=== PATIENT | male | born 1990 | race Caucasian/White ===

== ENCOUNTER 2016-05-31 12:12 | Emergency (ER) | payer BC, OTHER ==
[~2016-05-31] VITALS: Ht 177.8 cm; Wt 113.4 kg
--- OUTSIDE RECORDS SUMMARY | 2016-05-31 12:17 | XMS REPORT | Continuity of Care Document ---
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 Medications Medication Details Route Status Patient Instructions Ordering Provider Order Date Source Allergies, Adverse Reactions, Alerts Substance Category Reaction Severity Reaction type Status Date Reported Comments Source NKA drug allergy Allergy Active [facility] Immunizations Immunization Date Given Site Status Last Updated Comments Source No data available for this section No data available for this section [place] Results Order Name Results Value Reference Range Date Interpretation Comments Source Vital Signs Vital Sign Value Date Comments Source Encounters Location Location Details Encounter Type Encounter Number Reason For Visit Attending Provider ADM Date DC Date Status Source [facility] [id number] Clinic ( Outpatient) [id number] [place] 10/25/2013 [facility] [id number] Clinic ( Outpatient) [id number] Sheila Gunderson 04/27/2013 [facility] [id number] [place] 10/25/2013 10/26/2013 [facility] Procedures Procedure Code Date Perfomer Comments Source
[2016-05-31] MEDS ORDERED: AMPH20TA2 PO (12:25)
--- NOTE | 2016-05-31 12:50 | Diagnostic Imaging Report ---
INDICATION: Fell from a skateboard. Elbow pain EXAMINATION: Right elbow 05/31/2016 FINDINGS: 3 views of the elbow demonstrate a fracture of the radial head without significant displacement. There is a joint effusion. On the lateral view a nonspecific hyperdensity superimposed upon the proximal ulna is noted most likely a bone island although it is not seen on the subsequent images and displaced fracture fragment cannot be excluded. No dislocations appreciated. IMPRESSION: 1. Fracture of the radial head with a density overlying the ulna on the lateral view only. A displaced fracture fragment perhaps from the radial head is not excluded. CT imaging could further characterize. 2. Joint effusion. Dictated by: Dictated on workstation # [id number]
--- NOTE | 2016-05-31 13:00 | ED Upper Extremity ---
General Chief Complaint: Upper Extremity Stated Complaint: R ARM INJ Nursing Triage Note: to ER with complaints of right elbow and wrist pain and injury after a skateboarding accident. Patient reports that he fell forward and caught himself. Nursing Sepsis Screen: No Definite Risk History of Present Illness Time seen by provider: 12:50 Initial Comments Patient was skateboarding, he lost his balance and fell had both arms outstretched. He felt and heard a pop in his right forearm, has pain in the proximal right forearm no right elbow pain. Denies previous injuries to his right upper extremity is right hand dominant. Denies head injury or loss of consciousness at the time of the fall Onset: just prior to arrival Pain/Injury Location: right elbow Method of Injury: fell Modifying Factors: Improves With Immobilization, Worse With Movement, Improves With Rest Associated Symptoms: none Allergies and Home Medications Allergies Coded Allergies: hydrocodone (Unverified Allergy, Mild, HIVES, 05/31/16) Home Medications Dextroamphetamine/Amphetamine 20 Mg Tablet 20 MG PO PRN (Reported) Tramadol HCl 50 Mg Tablet #15 50 MG PO q8 Prescribed by: SOCO DEMPSEY on 05/31/16 1321 Constitutional: no symptoms reported see HPI EENTM: no symptoms reported see HPI Respiratory: no symptoms reported see HPI Cardiovascular: no symptoms reported see HPI Gastrointestinal: no symptoms reported see HPI Genitourinary: no symptoms reported see HPI Musculoskeletal: see HPI joint pain (right elbow) joint swelling muscle painNo neck pain Skin: no symptoms reported see HPI other (no abrasions or lacerations reported with fall) Psychiatric/Neurological: No Symptoms Reported See HPI All Other Systems Reviewed Negative Unless Noted: Yes Past Kztagql-Yabppy-Vjvoxm Hx Patient Social History Alcohol Use: Rarely Uses Recreational Drug Use: No Smoking Status: Never a Smoker 2nd Hand Smoke Exposure: No Recent Foreign Travel: No Contact w/Someone Who Travel: No Recent Infectious Disease Expo: No Recent Hopitalizations: No Immunizations Up To Date Tetanus Booster (TDap): Less than 5yrs PED Vaccines UTD: Yes Seasonal Allergies Seasonal Allergies: No Surgeries HX Surgeries: No Respiratory Hx Respiratory Disorders: No Cardiovascular Hx Cardiac Disorders: No Neurological Hx Neurological Disorders: No Reproductive System Hx Reproductive Disorders: No Genitourinary Hx Genitourinary Disorders: No Gastrointestinal Hx Gastrointestinal Disorders: No Musculoskeletal Hx Musculoskeletal Disorders: No Endocrine Hx Endocrine Disorders: No HEENT HX ENT Disorders: No Cancer Hx Cancer: No Psychosocial Hx Psychiatric Problems: No Integumentary HX Skin/Integumentary Disorder: No Blood Transfusions Hx Blood Disorders: No Reviewed Nursing Assessment Reviewed/Agree w Nursing PMH: Yes Physical Exam Vital Signs Vital Sign - Last 12Hours 05/31/16 12:23 Temp 97.8 Pulse 74 Resp 18 B/P 152/77 Pulse Ox 96 O2 Delivery Room Air Capillary Refill : Less Than 3 Seconds General Appearance: WD/WN no apparent distress HEENT: PERRL/EOMI normal ENT inspection Neck: non-tender full range of motion normal inspection Cardiovascular: normal peripheral pulses regular rate, rhythm no murmur Respiratory: chest non-tender lungs clear Gastrointestinal: normal bowel sounds non tender soft Elbow/Forearm: normal inspection, Right, bone tenderness (radial head), limited ROM Wrist: Yes normal inspection, Yes non-tender, Yes no evidence of injury, Yes normal ROM Hand: normal inspection, non-tender, no evidence of injury, normal ROM, Right Neurologic/Tendon: normal sensation normal motor functions normal tendon functions Neurologic/Psychiatric: no motor/sensory deficits alert normal mood/affect oriented x 3 Skin: normal color warm/dry Lymphatic: no adenopathy Progress/Results/Core Measures Results/Orders My Orders Vital Signs/I&O Blood Pressure Mean: 102 Diagnostic Imaging Diagonstic Imaging: Xray Plain Films/CT/US/NM/MRI: forearm, other (right elbow) Comments NAME: LANNY CAPELLAN V MED REC#: [id number] PT STATUS: REG ER : 1990 PHYSICIAN: ALEC PLUNKETT MD ADMIT DATE: 05/31/16/ER Draft Date of Exam:05/31/16 ELBOW, RIGHT, 3 VIEWS INDICATION: Fell from a skateboard. Elbow pain EXAMINATION: Right elbow 05/31/2016 FINDINGS: 3 views of the elbow demonstrate a fracture of the radial head without significant displacement. There is a joint effusion. On the lateral view a nonspecific hyperdensity superimposed upon the proximal ulna is noted most likely a bone island although it is not seen on the subsequent images and displaced fracture fragment cannot be excluded. No dislocations appreciated. IMPRESSION: 1. Fracture of the radial head with a density overlying the ulna on the lateral view only. A displaced fracture fragment perhaps from the radial head is not excluded. CT imaging could further characterize. 2. Joint effusion. Dictated on workstation # [id number] Dict: 05/31/16 1243 Trans: 05/31/16 1249 [facility] [id number] Interpreted by: PALAK YOST MD Electronically signed by: NAME: LANNY CAPELLAN V [facility] REC#: [id number] PT STATUS: REG ER : 1990 PHYSICIAN: ALEC PLUNKETT MD ADMIT DATE: 05/31/16/ER Draft Date of Exam:05/31/16 FOREARM, RIGHT, 2 VIEWS INDICATION: Trauma. EXAMINATION: Right forearm, 05/31/2016. FINDINGS: Two views of the forearm. Again noted is a fracture of the radial head with the density superimposed upon the ulna again seen. There is a joint effusion. No dislocations appreciated. More distal radius and ulna appear intact. IMPRESSION: 1. Changes at the elbow, see the separate elbow report, remaining forearm unremarkable. Dictated on workstation # [id number] Dict: 05/31/16 1245 Trans: 05/31/16 1259 [facility] [id number] Interpreted by: PALAK YOST MD Electronically signed by: Departure Impression Impression: Primary Impression: Radial head fracture Qualified Code: S52.124A - Nondisplaced fracture of head of right radius, initial encounter for closed fracture Additional Impression: Contusion of wrist Qualified Code: S60.211A - Contusion of right wrist, initial encounter Disposition: 01 HOME, SELF-CARE Condition: Stable Departure-Patient Inst. Decision time for Depature: 12:45 Referrals: NO,LOCAL PHYSICIAN (PCP/Family) Primary Care Physician Patient Instructions: How to Use a Shoulder Sling, Elbow Fracture (DC) Add. Discharge Instructions: All discharge instructions reviewed with patient and/or family. Voiced understanding. Use sling for right upper extremity, May remove for gentle range of motion to the right elbow and wrist, or for bathing. Ice to right elbow 20 minutes every 2 hours. Return to emergency department for worsening or changes in symptoms. Scripts Tramadol HCl 50 Mg [id number] Mg PO q8 Pain #15 TAB Ref 0 Prov:SOCO DEMPSEY 05/31/16 Copy Copies To 1: ERIC HUTCHINS MD, AMY ARNP May 31, 2016 13:00 Departure-Patient Inst. Decision time for Depature: 12:45 Referrals: NO,LOCAL PHYSICIAN (PCP/Family) Primary Care Physician Patient Instructions: How to Use a Shoulder Sling, Elbow Fracture (DC) Add. Discharge Instructions: All discharge instructions reviewed with patient and/or family. Voiced understanding. Use sling for right upper extremity, May remove for gentle range of motion to the right elbow and wrist, or for bathing. Ice to right elbow 20 minutes every 2 hours. Return to emergency department for worsening or changes in symptoms. Scripts Tramadol HCl 50 Mg [id number] Mg PO q8 Pain #15 TAB Ref 0 Prov:SOCO DEMPSEY 05/31/16 Copy Copies To 1: ERIC HUTCHINS MD, AMY ARNP May 31, 2016 13:00
[2016-05-31] MEDS ORDERED: TRAM50TA2 PO (13:21)
[2016-05-31 13:25] VITALS: BP 135/70
== END 2016-05-31 13:25 | disposition home or self-care (01) ==
LOC: ER 12:14
DX: S52.124A Nondisplaced fracture of head of right radius, initial encounter for closed fracture (principal); S60.211A Contusion of right wrist, initial encounter; M25.431 Effusion, right wrist; V00.131A Fall from skateboard, initial encounter; Y93.51 Activity, roller skating (inline) and skateboarding; Y99.8 Other external cause status
CPT/HCPCS: 73080; 73090; 99283

== ENCOUNTER → 2016-06-19 | Outpatient (CLI) | payer BC ==
[~2016-06-19] MED LIST: AMPH20TA2 PO; TRAM50TA2 PO
--- NOTE | 2016-06-19 16:21 | Diagnostic Imaging Report ---
PROCEDURE: CT right upper extremity without contrast. TECHNIQUE: Multiple contiguous axial images were obtained through the right upper extremity without the use of intravenous contrast. Sagittal and coronal reformations were then performed. INDICATION: Fracture of the right elbow with decreased range of motion. FINDINGS: There is a displaced fracture involving the ventral aspect of the radial head with displacement of fracture fragment measuring 1.9 x 0.9 x 0.5 cm to the radial posterior aspect of the radiocapitellar joint. There is a small joint fragment measuring 0.6 x 0.3 x 0.1 cm within the elbow joint at the central aspect of the articulation between the distal humeral condyles and within the central aspect of the olecranon fossa. There is also a minimally displaced 1 cm bone fragment fracture at the coronoid process. There is a small elbow hematoma. There is no radiopaque foreign body. There is no subluxation or dislocation. IMPRESSION: Intra-articular displaced fracture of the ventral aspect of the radial head with 1.9 cm displaced fragment located along the radial aspect of the radiocapitellar joint. There is also a 6 mm thin bone fragment within the elbow joint in the central aspect of the olecranon fossa. Minimally displaced coronoid process fracture also seen. Dictated by: Dictated on workstation # [id number]
== END ==
LOC: RAD 15:21
PROVIDERS: ATTEND Nurse Practitioner
DX: S52.121A Displaced fracture of head of right radius, initial encounter for closed fracture (principal); X58.XXXA Exposure to other specified factors, initial encounter; Y99.8 Other external cause status
CPT/HCPCS: 73200